=== PATIENT | female | born 1945 | race Caucasian/White ===

== ENCOUNTER 2018-01-17 10:34 | Emergency (ER) | payer OTHER, MEDICAID ==
[~2018-01-17] VITALS: Ht 154.9 cm; Wt 79.0 kg
[2018-01-17 10:40] VITALS: BP 154/68
--- NOTE | 2018-01-17 10:45 | NUR ---
PT AMBULATES TO BED 4
--- NOTE | 2018-01-17 10:52 | NUR ---
AAO WITH C/O COUGH X 3 WKS WITH ITHCY/DRY THROAT; DENIES SORE THROAT OR SOB; TAKING ORAL AND INJECTIONS OF PCN BROUGHT BY A FRIEND FROM [place]; LAST TAKEN 2 DAYS AGO DENIES N/V/D; SKIN IS PINK/WARM/DRY; AWAKE, ALERT WITH EVEN AND STEADY GAIT; LUNGS CLEAR BL; HR EVEN AND REGULAR; PT DENIES ANY FEVER, CP, SOB, OR COUGH AT THIS TIME; PATIENT STATES PAIN OF 0/10 AT THIS TIME; VSS; PATIENT POSITIONED FOR COMFORT; HOB ELEVATED; BEDRAILS UP X2; BED DOWN. ER MD MADE AWARE OF PT STATUS.
--- NOTE | 2018-01-17 10:54 | NUR ---
Patient being evaluated by physician at bedside.
[2018-01-17] MEDS ORDERED: ALBUTEROL SULFATE/IPRATROPIU 3 ML SOL IH ONE (11:00)
--- NOTE | 2018-01-17 11:06 | NUR ---
RT AT BEDSIDE
--- NOTE | 2018-01-17 11:40 | NUR ---
XRAY AT BEDSIDE
--- NOTE | 2018-01-17 12:42 | NUR ---
Patient discharged with v/s stable. Written and verbal after care instructions given and explained. Patient alert, oriented and verbalized understanding of instructions. Ambulatory with steady gait. All questions addressed prior to discharge. ID band removed. Patient advised to follow up with PMD. Rx of AZITHROMYCIN AND ALBUTEROL given. Patient educated on indication of medication including possible reaction and side effects. Opportunity to ask questions provided and answered.
[2018-01-17 12:43] VITALS: BP 140/72
== END 2018-01-17 12:42 | disposition home or self-care (01) ==
LOC: MED 10:34
DX: J18.9 Pneumonia, unspecified organism (principal); E11.9 Type 2 diabetes mellitus without complications; I10 Essential (primary) hypertension
CPT/HCPCS: 71045; 93005; 94640; 99283; J7620

== ENCOUNTER 2023-11-10 10:41 | Inpatient (IN) | payer OTHER, MEDICAID ==
[~2023-11-10] VITALS: Ht 152.4 cm; Wt 79.4 kg
[2023-11-10 11:09] VITALS: BP 144/71; PULSE 111; RESP 18; TEMP 97.5; O2SAT 96
[2023-11-10] MEDS: ONDANSETRON 4 MG TAB PO ONE (12:12)
[2023-11-10] MEDS: HYDROcodone/APAP 5/325 MG 1 TAB TAB PO ONE (12:13)
[2023-11-10] MEDS: ONDANSETRON 4 MG/2 ML VIAL IVP ONE (12:14)
[2023-11-10 12:28] LABS: BASOPHILS % (AUTO) 0.5 % (0.0-2.0); EOSINOPHILS # (AUTO) 0.1 K/uL (0-0.4); EOSINOPHILS % (AUTO) 1.1 % (0.0-4.0); HEMATOCRIT 39.4 % (36-48); HEMOGLOBIN 13.2 g/dL (12.0-16.0); LYMPHOCYTES # (AUTO) 2.7 K/uL (2.5-16.5); LYMPHOCYTES % (AUTO) 29.4 % (20.5-51.1); MEAN CORPUSCULAR HEMOGLOBIN 31 pg (27-31); MEAN CORPUSCULAR HGB CONC 34 g/dL (33-37); MEAN CORPUSCULAR VOLUME 91.9 fL (80-94); MONOCYTES # (AUTO) 0.6 K/uL (0.8-1.0); MONOCYTES % (AUTO) 6.2 % (1.7-9.3); NEUTROPHILS # (AUTO) 5.8 K/uL (1.8-7.7); NEUTROPHILS % (AUTO) 62.8 % (42.2-75.2); PLATELET COUNT (AUTO) 219 K/uL (140-450); RED BLOOD CELL COUNT(AUTO) 4.29 MIL/uL (4.20-5.40); RED CELL DISTRIBUTION WIDTH 14.6 % (11.6-13.7); WHITE BLOOD COUNT (AUTO) 9.3 K/uL (4.8-10.8)
[2023-11-10 12:38] LABS: ANION GAP 14.4 (8-16); CALCIUM 9.9 mg/dL (8.5-10.1); CARBON DIOXIDE 26.8 mmol/L (21-32); CHLORIDE 98 mmol/L (98-107); CREATININE 0.9 mg/dL (0.6-1.3); GLUCOSE 165 mg/dL (74-106); POTASSIUM 4.2 mmol/L (3.5-5.1); SODIUM SERUM 135 mmol/L (136-145); UREA NITROGEN, BLOOD 26 mg/dL (7-18)
[2023-11-10 12:45] LABS: APPEARANCE,URINE CLEAR (CLEAR); BILIRUBIN,URINE NEGATIVE (NEGATIVE); BLOOD, URINE NEGATIVE (NEGATIVE); COLOR,URINE YELLOW (YELLOW); LEUKOCYTE ESTERASE ,URINE NEGATIVE (NEGATIVE); NITRITE, URINE NEGATIVE (NEGATIVE); PROTEIN,URINE TRACE (NEGATIVE); UGLUCOSE NEGATIVE (NEGATIVE); UROBILINOGEN,URINE 0.2 EU/dL (0.2 - 1)
[2023-11-10 12:49] LABS: ALANINE AMINOTRANSFERASE 28 U/L (12-78); ALBUMIN 3.8 g/dL (3.4-5.0); ALKALINE PHOSPHATASE 48 U/L (50-136); ASPARTATE AMINOTRANSFERASE 15 U/L (15-37); BILIRUBIN,DIRECT 0.1 mg/dL (0.0-0.3); TOTAL BILIRUBIN 0.3 mg/dL (0.0-1.0); TOTAL PROTEIN, SERUM 7.6 g/dL (6.4-8.2)
[2023-11-10 12:50] LABS: INR 0.97 (0.8-1.2); PARTIAL THROMBOPLASTIN TIME 26.1 secs (22-35.6); PROTHROMBIN TIME 10.2 secs (10.8-13.4)
[2023-11-10] MEDS: KETOROLAC 30 MG/ML VIAL IVP ONE (13:04)
[2023-11-10] MEDS ORDERED: PIPERACILLIN/TAZOBACTAM 3.375 GM VIAL IV ONE (14:54)
[2023-11-10] MEDS ORDERED: GABA-636 PO (14:56)
[2023-11-10] MEDS ORDERED: LORA-476 (14:56)
[2023-11-10] MEDS ORDERED: ATEN50TA2 PO (14:56)
[2023-11-10] MEDS ORDERED: METF-335 PO (14:56)
[2023-11-10] MEDS: NACL 0.9% 1,000 ML IV SCH (15:02)
[2023-11-10] MEDS: PIPERACILLIN/TAZOBACTAM 3.375 GM in DEXT 5% MINI-BAG PLUS 50 ML IV ONE (15:03)
[2023-11-10 15:11] LABS: LACTIC ACID 1.4 mmol/L (0.4-2.0)
[2023-11-10] MEDS ORDERED: DOCUSATE SODIUM 100 MG GELCAP PO PRN (15:35)
[2023-11-10] MEDS ORDERED: KCL 20 MEQ IN 100 mL PREMIX 200 ML IV PRN (15:35)
[2023-11-10 16:46] LABS: THYROID STIMULATING HORMONE 1.37 uIU/mL (0.34-3.74)
[2023-11-10 17:14] VITALS: PULSE 96; RESP 18; O2SAT 96
[2023-11-10] MEDS ORDERED: HYDROcodone/APAP 5/325 MG 1 TAB TAB PO PRN (17:45)
[2023-11-10] MEDS: MORPHINE SULFATE 2 MG/ML SYR IVP PRN (18:00)
[2023-11-10 18:41] LABS: LACTIC ACID 1.1 mmol/L (0.4-2.0)
[2023-11-10 20:00] VITALS: BP 131/56; PULSE 93; PULSE 97; RESP 18; RESP 19; TEMP 97.5; O2SAT 94
[2023-11-10] MEDS ORDERED: LORazepam 1 MG TAB PO PRN (22:55)
[2023-11-10] MEDS ORDERED: DEXTROSE 50% 50 ML SYR IVP PRN (22:55)
[2023-11-11] VITALS: BP 108/56; PULSE 89; PULSE 91; RESP 18; TEMP 97.5; O2SAT 95
[2023-11-11 04:00] VITALS: BP 114/60; PULSE 92; RESP 18; TEMP 97.3; O2SAT 93
[2023-11-11 06:01] LABS: BASOPHILS % (AUTO) 0.5 % (0.0-2.0); EOSINOPHILS # (AUTO) 0.3 K/uL (0-0.4); EOSINOPHILS % (AUTO) 3.4 % (0.0-4.0); HEMATOCRIT 36.7 % (36-48); HEMOGLOBIN 12.4 g/dL (12.0-16.0); LYMPHOCYTES # (AUTO) 2.4 K/uL (2.5-16.5); MEAN CORPUSCULAR HEMOGLOBIN 31 pg (27-31); MEAN CORPUSCULAR HGB CONC 34 g/dL (33-37); MEAN CORPUSCULAR VOLUME 92.3 fL (80-94); MONOCYTES # (AUTO) 0.5 K/uL (0.8-1.0); MONOCYTES % (AUTO) 7.1 % (1.7-9.3); NEUTROPHILS # (AUTO) 4.3 K/uL (1.8-7.7); PLATELET COUNT (AUTO) 194 K/uL (140-450); RED BLOOD CELL COUNT(AUTO) 3.98 MIL/uL (4.20-5.40); RED CELL DISTRIBUTION WIDTH 14.1 % (11.6-13.7); WHITE BLOOD COUNT (AUTO) 7.5 K/uL (4.8-10.8)
[2023-11-11] MEDS: BLOOD GLUCOSE MONITORING 1 DEV DEV FS SCH (06:54)
[2023-11-11] MEDS: LORazepam 0.5 MG TAB PO PRN (07:01)
[2023-11-11 08:00] VITALS: BP 118/64; PULSE 79; PULSE 90; PULSE 91; RESP 17; TEMP 98; O2SAT 94
[2023-11-11 08:21] LABS: ALANINE AMINOTRANSFERASE 25 U/L (12-78); ALBUMIN 3.3 g/dL (3.4-5.0); ALKALINE PHOSPHATASE 35 U/L (50-136); ANION GAP 13.2 (8-16); ASPARTATE AMINOTRANSFERASE 15 U/L (15-37); CALCIUM 9.2 mg/dL (8.5-10.1); CARBON DIOXIDE 26.5 mmol/L (21-32); CHLORIDE 103 mmol/L (98-107); CREATININE 0.7 mg/dL (0.6-1.3); GLUCOSE 133 mg/dL (74-106); MAGNESIUM 1.5 mg/dL (1.8-2.4); PHOSPHORUS 3.1 mg/dL (2.5-4.9); POTASSIUM 4.7 mmol/L (3.5-5.1); SODIUM SERUM 138 mmol/L (136-145); TOTAL BILIRUBIN 0.4 mg/dL (0.0-1.0); TOTAL PROTEIN, SERUM 6.7 g/dL (6.4-8.2); UREA NITROGEN, BLOOD 19 mg/dL (7-18)
[2023-11-11] MEDS: ONDANSETRON 4 MG/2 ML VIAL IV PRN (09:55)
[2023-11-11] MEDS: MAG SULF 2000 MG/WATER PREMIX 50 ML IV PRN (09:56)
[2023-11-11] MEDS: GABAPENTIN 100 MG CAP PO SCH (09:57)
[2023-11-11] MEDS: atenoloL 50 MG TAB PO SCH (09:58)
[2023-11-11 12:00] VITALS: BP 104/58; PULSE 82; PULSE 84; RESP 19; TEMP 97.4; O2SAT 94
[2023-11-11] MEDS: INSULIN LISPRO SLIDING SCALE 100 UNITS/ML VIAL SUBQ PRN (12:27)
[2023-11-11] MEDS: ACETAMINOPHEN 325 MG TAB PO PRN (13:21)
[2023-11-11 16:00] VITALS: BP 121/54; PULSE 65; RESP 18; TEMP 97; O2SAT 97
[2023-11-11 20:00] VITALS: BP 124/47; PULSE 73; PULSE 77; RESP 18; TEMP 97; O2SAT 94
[2023-11-11] MEDS: AMOXIL/CLAVULANATE 875/125 MG 1 TAB PO SCH (20:37)
[2023-11-11] MEDS ORDERED: AMOXIL/CLAVULANATE 500/125 MG 1 TAB PO SCH (21:00)
[2023-11-12] VITALS: BP 128/56; PULSE 68; PULSE 71; RESP 18; TEMP 97.3; O2SAT 96
[2023-11-12 04:00] VITALS: BP 104/46; PULSE 64; PULSE 92; RESP 19; TEMP 97.6; O2SAT 95
[2023-11-12 06:44] LABS: BASOPHILS % (AUTO) 0.5 % (0.0-2.0); EOSINOPHILS # (AUTO) 0.3 K/uL (0-0.4); EOSINOPHILS % (AUTO) 3.7 % (0.0-4.0); HEMATOCRIT 38.9 % (36-48); HEMOGLOBIN 12.9 g/dL (12.0-16.0); LYMPHOCYTES # (AUTO) 2.8 K/uL (2.5-16.5); LYMPHOCYTES % (AUTO) 33.7 % (20.5-51.1); MEAN CORPUSCULAR HEMOGLOBIN 31 pg (27-31); MEAN CORPUSCULAR HGB CONC 33 g/dL (33-37); MONOCYTES # (AUTO) 0.6 K/uL (0.8-1.0); MONOCYTES % (AUTO) 7.1 % (1.7-9.3); NEUTROPHILS # (AUTO) 4.5 K/uL (1.8-7.7); PLATELET COUNT (AUTO) 208 K/uL (140-450); RED BLOOD CELL COUNT(AUTO) 4.18 MIL/uL (4.20-5.40); RED CELL DISTRIBUTION WIDTH 14.3 % (11.6-13.7); WHITE BLOOD COUNT (AUTO) 8.2 K/uL (4.8-10.8)
[2023-11-12 07:29] LABS: ALANINE AMINOTRANSFERASE 24 U/L (12-78); ALBUMIN 3.4 g/dL (3.4-5.0); ALKALINE PHOSPHATASE 43 U/L (50-136); ANION GAP 10.1 (8-16); ASPARTATE AMINOTRANSFERASE 17 U/L (15-37); CALCIUM 8.9 mg/dL (8.5-10.1); CARBON DIOXIDE 28.6 mmol/L (21-32); CHLORIDE 102 mmol/L (98-107); CREATININE 0.8 mg/dL (0.6-1.3); GLUCOSE 137 mg/dL (74-106); MAGNESIUM 1.8 mg/dL (1.8-2.4); PHOSPHORUS 2.9 mg/dL (2.5-4.9); POTASSIUM 4.7 mmol/L (3.5-5.1); SODIUM SERUM 136 mmol/L (136-145); TOTAL BILIRUBIN 0.3 mg/dL (0.0-1.0); TOTAL PROTEIN, SERUM 6.6 g/dL (6.4-8.2); UREA NITROGEN, BLOOD 12 mg/dL (7-18)
[2023-11-12 08:00] VITALS: BP 124/34; PULSE 64; PULSE 73; RESP 18; TEMP 97.5; O2SAT 94; O2SAT 98
[2023-11-12 09:01] VITALS: BP 123/62; PULSE 76; RESP 17; TEMP 98.1; O2SAT 98
[2023-11-12] MEDS ORDERED: ACET-8001 PO (11:36)
[2023-11-12] MEDS ORDERED: AUG875 PO (11:36)
[2023-11-12 12:00] VITALS: BP 122/45; PULSE 68; RESP 18; TEMP 97.6; O2SAT 98
[2023-11-12 13:51] VITALS: BP 122/45; PULSE 68; RESP 18; TEMP 97.6
== END 2023-11-12 16:00 | disposition home health service (06) | DRG 103 ==
LOC: MED 10:41 → MTU 15:06
PROVIDERS: ADMIT Student in an Organized Health Care Education/Training Program; ATTEND Student in an Organized Health Care Education/Training Program
DX: G43.809 Other migraine, not intractable, without status migrainosus (principal); E44.1 Mild protein-calorie malnutrition; S09.8XXA Other specified injuries of head, initial encounter; M25.511 Pain in right shoulder; I10 Essential (primary) hypertension; E11.40 Type 2 diabetes mellitus with diabetic neuropathy, unspecified; J32.0 Chronic maxillary sinusitis; F41.9 Anxiety disorder, unspecified; M19.09 Primary osteoarthritis, other specified site; W19.XXXA Unspecified fall, initial encounter; Z79.84 Long term (current) use of oral hypoglycemic drugs; Z79.899 Other long term (current) drug therapy; Y93.89 Activity, other specified; Y92.89 Other specified places as the place of occurrence of the external cause; Y99.8 Other external cause status; Z68.34 Body mass index [BMI] 34.0-34.9, adult
CPT/HCPCS: 36415; 70450; 71045; 73030; 73630; 76700; 80048; 80053; 80076; 81003; 82948; 83036; 83605; 83690; 83735; 83880; 84100; 84443; 84484; 85025; 85610; 85730; 87040; 87081; 87086; 93005; 96365; 96375; 97116; 97163-GP; 99285; J1815; J1885; J2270; J2405; J2543; J3475; Q0092; Q0162